=== PATIENT | female | born 1990 | race Two or more races ===

== ENCOUNTER 2019-04-17 18:41 | Emergency (ER) | payer OTHER ==
[~2019-04-17] VITALS: Ht 154.9 cm; Wt 59.0 kg
--- NOTE | 2019-04-17 18:57 | NUR ---
ED Nurse Note: Pt jammed her R 4th toe on the door around 1130 today. Redness noted. AOx4, VSS.
--- NOTE | 2019-04-17 19:15 | NUR ---
HAND-OFF: Report given to Lesley DUNN.
--- NOTE | 2019-04-17 19:45 | NUR ---
ED Nurse Note: IMAGING AT BEDSIDE.
--- NOTE | 2019-04-17 20:01 | Diagnostic Imaging Report ---
EXAM: XR Right Foot Complete, 3 or More Views CLINICAL HISTORY: PAIN TECHNIQUE: Frontal, lateral and oblique views of the right foot. COMPARISON: No relevant prior studies available. FINDINGS: Bones/joints: No acute fracture. No dislocation. Soft tissues: Unremarkable. No radiopaque foreign body. IMPRESSION: No acute osseous findings.
[2019-04-17] MEDS ORDERED: IBUPROFEN600 MG ORAL (20:19)
--- NOTE | 2019-04-17 20:19 | Emergency Room Report ---
History of Present Illness General Chief Complaint: Lower Extremity Injury Source: Patient Present Illness HPI 28-year-old female presents to the emergency department complaining of 10 out of 10 severity localized pain to the right fourth toe x3 hours. Patient reports status post jamming her toe. Patient reports swelling, bruising and pain with attempts to ambulate. Patient denies previous injury to this extremity. Patient denies open wounds or bleeding. Denies numbness tingling or loss of sensation or gross motor movements of the extremity. Is currently breast-feeding. Allergies: Coded Allergies: No Known Allergies (Unverified , 04/17/19) Patient History Past Medical History: see triage record Past Surgical History: none Pertinent Family History: none Last Menstrual Period: 03/2019 Now: No : 1 Para: 1 Reviewed Nursing Documentation: PMH: Agreed; PSxH: Agreed Nursing Documentation-PMH Past Medical History: No Stated History Review of Systems All Other Systems: negative except mentioned in HPI Physical Exam Vital Signs Date Time Temp Pulse Resp B/P (MAP) Pulse Ox O2 Delivery O2 Flow Rate FiO2 04/17/19 18:54 100.0 96 20 126/76 (93) 98 Room Air Sp02 EP Interpretation: reviewed, normal General Appearance: no apparent distress, alert, GCS 15, non-toxic Head: normocephalic, atraumatic Eyes: bilateral eye normal inspection, bilateral eye PERRL ENT: hearing grossly normal, normal voice Neck: full range of motion Respiratory: lungs clear, normal breath sounds, speaking full sentences Cardiovascular #1: regular rate, rhythm, normal capillary refill Musculoskeletal: back normal, gait/station normal - mild compensation, normal range of motion, tender - TTP to the Right 4th DIP joint. bruising noted. Mild increased laxity, FROM with pain. Neurologic: alert, oriented x3, responsive, motor strength/tone normal, sensory intact, speech normal, grossly normal Psychiatric: judgement/insight normal Skin: Ecchymosis/Bruising - right 4th dip joint Medical Decision Making PA Attestation Dr. Villalba Is my supervising Physician whom patient management has been discussed with. Diagnostic Impression: Primary Impression: Sprain of toe, fourth, right Qualified Codes: S93.504A - Unspecified sprain of right lesser toe(s), initial encounter Additional Impression: Contusion of toe of right foot Qualified Codes: S90.121A - Contusion of right lesser toe(s) without damage to nail, initial encounter ER Course 28-year-old female presents to the emergency department complaining of 10 out of 10 severity localized pain to the right fourth toe x3 hours. Patient reports status post jamming her toe. Patient reports swelling, bruising and pain with attempts to ambulate. Patient denies previous injury to this extremity. Patient denies open wounds or bleeding. Denies numbness tingling or loss of sensation or gross motor movements of the extremity. Is currently breast-feeding. Ddx considered but are not limited to Fracture, dislocation, contusion, Sprain/ Strain/Spasm. Vital signs: are WNL, pt. is afebrile H&PE are most consistent with musculoskeletal injury will perform imaging to r/ o fractures/dislocations. ORDERS: - X-ray Right foot 3 views - negative for fx, Dislocation, or significant soft tissue injury, per preliminary read in ED, and signed by GRUPO Lentz , my supervising physician has reviewed, and agrees with my interpretation. ED INTERVENTIONS: - Motrin PO - Toe was farshad taped by materials tech. pt. remains NVI both before and after farshad taping. - Pt was placed into a hard sole post-op shoe. DISCHARGE: At this time pt. is stable for d/c to home. Will provide printed patient care instructions, and any necessary prescriptions. Care plan and follow up instructions have been discussed with the patient prior to discharge. Other X-Ray Diagnostic Results Other X-Ray Diagnostic Results : X-Ray ordered: Right Foot # of Views/Limited Vs Complete: 3 View Indication: Pain EP Interpretation: Yes GRUPO Xray: Interpretation reviewed, by supervising MD, and agrees with findings. Interpretation: no dislocation, no soft tissue swelling, no fractures Impression: No acute disease Electronically Signed by: Tammy Lentz PA-C Last Vital Signs Date Time Temp Pulse Resp B/P (MAP) Pulse Ox O2 Delivery O2 Flow Rate FiO2 04/17/19 18:54 100.0 96 20 126/76 (93) 98 Room Air Disposition: HOME, SELF-CARE Condition: Stable Scripts Ibuprofen* (MOTRIN*) 600 Mg Tablet 600 MG ORAL THREE TIMES A DAY, #30 TAB 0 Refills Prov: Tammy Lentz 04/17/19 Patient Instructions: Jammed Finger Additional Instructions: Take medications as directed. Follow up with a Primary Care Provider in 3-5 days, even if your symptoms have resolved. --Please review list of primary care clinics, if you do not already have a primary care provider Return sooner to ED if new symptoms occur, or current symptoms become worse. - Please note that this Emergency Department Report was dictated using [employer] maker technology software, occasionally this can lead to erroneous entry secondary to interpretation by the dictation equipment. Tammy Lentz Apr 17, 2019 20:19
[2019-04-17 20:24] VITALS: BP 126/76
--- NOTE | 2019-04-17 20:25 | NUR ---
ER DISCHARGE NOTE: Patient is cleared to be discharged per ERMD, pt is aox4, on room air, with stable vital signs. accompanied by family member. pt was given dc and prescription instructions, pt was able to verbalize understanding, pt id band removed. pt is able to ambulate with steady gait. pt took all belongings.
== END 2019-04-17 20:24 | disposition home or self-care (01) ==
LOC: EMR 19:27
DX: S93.504A Unspecified sprain of right lesser toe(s), initial encounter (principal); S90.121A Contusion of right lesser toe(s) without damage to nail, initial encounter; W22.8XXA Striking against or struck by other objects, initial encounter; Y92.9 Unspecified place or not applicable
CPT/HCPCS: 99283